=== PATIENT | male | born 1990 | race Two or more races ===

== ENCOUNTER 2019-04-16 15:54 | Emergency (ER) | payer SELFPAY ==
[~2019-04-16] VITALS: Ht 160 cm; Wt 68.0 kg
--- NOTE | 2019-04-16 16:00 | NUR ---
ED Nurse Note: Pt came with LASD to unit. Pt complaining of pain to bilat shoulders 5/10. Bilateral ROM 5/5. Patient denies numbness or tingling to site. Pt is A&o x4.
--- NOTE | 2019-04-16 16:15 | NUR ---
ER DISCHARGE NOTE: Patient is cleared to be discharged per ERMD, pt is aox4, on room air, with stable vital signs. Police were given dc and prescription instructions, pt was able to verbalize understanding, pt id band removed without complications. pt is able to ambulate with steady gait.
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
[2019-04-16] MEDS ORDERED: IBUPROFEN600 MG ORAL (16:17)
[2019-04-16 16:20] VITALS: BP 114/76
== END 2019-04-16 16:27 ==
LOC: EMR 16:12
DX: M25.512 Pain in left shoulder (principal); M25.511 Pain in right shoulder
CPT/HCPCS: 99282